=== PATIENT | male | born 1975 | race Caucasian/White ===

== ENCOUNTER 2018-01-28 12:14 | Emergency (ER) | payer OTHER ==
[~2018-01-28] VITALS: Ht 185.4 cm; Wt 97.1 kg
[2018-01-28] MEDS ORDERED: NEURONTIN 300M300 M2 PO (12:35)
[2018-01-28] MEDS ORDERED: QUETIAPINE FUM100 MG PO (12:36)
[2018-01-28] MEDS ORDERED: PROPRANOLOL 1010 MG PO (12:37)
[2018-01-28] MEDS ORDERED: PROZAC20 MG PO (12:37)
[2018-01-28] MEDS ORDERED: FLOMAX0.4 MG PO (12:37)
[2018-01-28] MEDS ORDERED: REVATIO20 MG PO (12:38)
[2018-01-28] MEDS ORDERED: MOBIC7.5 MG PO (12:38)
[2018-01-28 13:34] VITALS: BP 111/67
== END 2018-01-28 13:35 | disposition home or self-care (01) ==
LOC: M.ERS 12:14
DX: S51.811A Laceration without foreign body of right forearm, initial encounter (principal); K21.9 Gastro-esophageal reflux disease without esophagitis; E78.5 Hyperlipidemia, unspecified; F17.210 Nicotine dependence, cigarettes, uncomplicated; Z96.652 Presence of left artificial knee joint; Z88.8 Allergy status to other drugs, medicaments and biological substances; W26.8XXA Contact with other sharp object(s), not elsewhere classified, initial encounter; Y93.89 Activity, other specified; Y92.89 Other specified places as the place of occurrence of the external cause; Y99.8 Other external cause status